=== PATIENT | male | born 1945 | race African-American/Black ===

== ENCOUNTER 2024-04-12 15:39 | Inpatient (IN) | payer BC, OTHER ==
[2024-04-12 16:26] LABS: VENOUS BASE EXCESS -5.3 mmol/L (-2-2); VENOUS O2 SATURATION 50.2 % (70-80); VENOUS PCO2 49.9 mmHg (38-52); VENOUS PH 7.261 (7.310-7.410)
[2024-04-12 16:45] LABS: BASO % 0.3 % (0-2.0); EOS % 3.1 % (0-4.5); HEMATOCRIT 37.3 % (35.4-49); HEMOGLOBIN 11.6 GM/dL (11.7-16.9); LYMPH % 35.5 % (8-40); MCH 27.7 pg (25.7-33.7); MCHC 30.9 g/dl (32.0-35.9); MEAN CELL VOLUME 89.5 fl (80-96); MEAN PLT VOLUME 7.6 fl (7.5-11.1); MONO % 8.6 % (3.8-10.2); NEUT % 52.5 % (42.8-82.8); PLATELET COUNT 174 10^3/uL (134-434); RBC 4.17 M/mm3 (4.00-5.60); RDW 14.8 % (11.9-15.9); WHITE BLOOD COUNT 7.6 K/mm3 (4.0-10.0)
[2024-04-12] MEDS: SODIUM CHLORIDE 0.9% 500 ML INFUS.BAG IV ONE (16:49)
[2024-04-12 16:51] LABS: INR 0.96 (0.83-1.09); PROTHROMBIN TIME (PATIENT) 10.6 SEC (9.7-13.0)
[2024-04-12 16:54] LABS: ACTIVATED PTT 25.9 SECONDS (25.2-36.5)
[2024-04-12 17:00] LABS: ARTERIAL BLD GAS O2 SATURATION 99.5 % (95-98); ARTERIAL BLOOD GAS BASE EXCESS -4.6 mmol/L (-2-2); ARTERIAL BLOOD GAS PO2 251.6 mmHg (80-100); ARTERIAL BLOOD GAS pH 7.354 (7.350-7.450)
[2024-04-12 17:00] LABS: POTASSIUM 3.4 mmol/L (3.5-5.1)
[2024-04-12 17:02] LABS: BLOOD UREA NITROGEN 22.5 mg/dL (7-18); CALCIUM 8.7 mg/dL (8.5-10.1)
[2024-04-12 17:03] LABS: ALBUMIN 3.6 g/dl (3.4-5.0)
[2024-04-12 17:06] LABS: PHOSPHOROUS 2.6 mg/dL (2.5-4.9)
[2024-04-12 17:07] LABS: BILIRUBIN,TOTAL 0.5 mg/dL (0.2-1); TOT PROT 7.8 g/dl (6.4-8.2)
[2024-04-12] MEDS ORDERED: fentaNYL CITRATE 250 MCG/5 ML VIAL ONE (17:09)
[2024-04-12] MEDS ORDERED: MIDAZOLAM IN 0.9 % SOD.CHLORID 1 MG/1 ML PLAST..BAG ONE (17:09)
[2024-04-12 17:11] LABS: N-TERMINAL BNP 615.3 pg/ml (5-450)
[2024-04-12 17:20] LABS: LACTIC ACID 2.8 mmol/L (0.4-2.0)
[2024-04-12] MEDS: FENTANYL NS IVPB 500 MCG/100 ML BAG IVPB SCH (17:57)
[2024-04-12] MEDS: MIDAZOLAM 100 MG in SODIUM CHLORIDE 100 ML IVPB SCH (17:57)
[2024-04-12 18:02] LABS: HCV DIAGNOSTIC IN-HOUSE W/RFLX NON-REACTIVE (NONREACTIVE); HIV INTERPRETATION NEGATIVE (NEGATIVE)
[2024-04-12 19:59] LABS: ARTERIAL BLD GAS O2 SATURATION 99.2 % (95-98); ARTERIAL BLOOD GAS BASE EXCESS -7.1 mmol/L (-2-2)
[2024-04-12] MEDS: NOREPINEPHRINE 0.9 % NACL 8 MG/250 ML BAG IVPB SCH (20:00)
[2024-04-12 20:03] LABS: ALLENS TEST POSITIVE; VENT MODE A/C; VENT RATE 14
[2024-04-12] MEDS ORDERED: NOREPINEPHRINE BITARTRATE 4 MG/4 ML ML IV ONE (20:39)
[2024-04-12] MEDS: MUPIROCIN 2% TOPICAL OINTMENT FOR DECOLONIZATION NS SCH (21:28)
[2024-04-12] MEDS: HEPARIN NA (PORCINE) 5,000 UNITS/ML 1ML VIAL SQ SCH (21:29)
[2024-04-12] MEDS: CHLORHEXIDINE GLUCONATE 4% CLEANSER FOR DECOLONIZATION TP SCH (21:29)
[2024-04-12] MEDS: SODIUM BICARBONATE 8.4% 50 MEQ/50 ML DISP.SYRIN IVPUSH ONE (22:12)
[2024-04-12] MEDS ORDERED: AMIODARONE IN DEXTROSE,ISO-OSM 150 MG/100 ML BAG ONE (22:35)
[2024-04-12] MEDS ORDERED: AMIODARONE IN DEXTROSE,ISO-OSM 360 MG/200 ML BAG ONE (22:41)
[2024-04-12] MEDS: AMIODARONE IN DEXTROSE,ISO-OSM 360 MG/200 ML BAG IV ONE (22:58)
[2024-04-12] MEDS ORDERED: VASopressin 20 UNITS/ML VIAL IV ONE (23:44)
[2024-04-12] MEDS ORDERED: ALBUMIN HUMAN 25% 12.5 GM/50 ML VIAL IV SCH (23:45)
[2024-04-12 23:46] LABS: ARTERIAL BLOOD GAS BASE EXCESS -1.7 mmol/L (-2-2); ARTERIAL BLOOD GAS PO2 110.6 mmHg (80-100); ARTERIAL BLOOD GAS pH 7.396 (7.350-7.450)
[2024-04-12 23:48] LABS: VENT RATE 16
[2024-04-13] MEDS: VASopressin 40 UNITS/100 ML BAG IV SCH (00:08)
[2024-04-13] MEDS: HYDROCORTISONE SOD SUCCINATE 100 MG/2 ML VIAL IVPB SCH (00:32)
[2024-04-13] MEDS: ALBUMIN HUMAN 5% 500 ML IV SOLUTION IV ONE (00:47)
[2024-04-13] MEDS: MIDAZOLAM IN 0.9 % SOD.CHLORID 100 MG/100 ML PLAST..BAG IVPB SCH (02:03)
[2024-04-13] MEDS: PIPERACILLIN/TAZOB 3.375 GM 3.375 GM in DEXTROSE 5%-WATER - 50 ML IVPB SCH (02:07)
[2024-04-13] MEDS: AMIODARONE IN DEXTROSE,ISO-OSM 360 MG/200 ML BAG IV SCH (05:27)
[2024-04-13 07:45] LABS: HEMATOCRIT 27.7 % (35.4-49); HEMOGLOBIN 9.2 GM/dL (11.7-16.9); MCH 28.9 pg (25.7-33.7); MEAN CELL VOLUME 87.3 fl (80-96); MEAN PLT VOLUME 7.7 fl (7.5-11.1); PLATELET COUNT 138 10^3/uL (134-434); RBC 3.18 M/mm3 (4.00-5.60); RDW 14.4 % (11.9-15.9); WHITE BLOOD COUNT 9.1 K/mm3 (4.0-10.0)
[2024-04-13 07:48] LABS: LACTIC ACID 2.6 mmol/L (0.4-2.0)
[2024-04-13 07:57] LABS: MAGNESIUM 1.7 mg/dL (1.8-2.4)
[2024-04-13 08:01] LABS: PHOSPHOROUS 3.2 mg/dL (2.5-4.9)
[2024-04-13 09:44] LABS: ANISOCYTOSIS 0; MACROCYTOSIS 0; OVALOCYTE 1+
[2024-04-13] MEDS: MAGNESIUM 2GM/50ML STERILE WATER IVPB IVPB ONE (09:56)
[2024-04-13] MEDS: VANCOMYCIN 1 GM PREMIX (F) 1 GM/200 ML BAG IVPB ONE (18:56)
[2024-04-13 21:47] LABS: ALBUMIN 3.1 g/dl (3.4-5.0); BLOOD UREA NITROGEN 47.4 mg/dL (7-18); CALCIUM 7.2 mg/dL (8.5-10.1)
[2024-04-13 21:50] LABS: CREATININE 4.4 mg/dL (0.55-1.3)
[2024-04-13 21:51] LABS: BILIRUBIN,TOTAL 0.8 mg/dL (0.2-1); TOT PROT 6.1 g/dl (6.4-8.2)
[2024-04-14] MEDS: PIPERACILLIN/TAZOB 2.25 GM 2.25 GM/50 ML BAG IVPB SCH (03:16)
[2024-04-14] MEDS ORDERED: AMIODARONE IN DEXTROSE,ISO-OSM 150 MG/100 ML BAG ONE (06:35)
[2024-04-14] MEDS: AMIODARONE IN DEXTROSE,ISO-OSM 150 MG/100 ML BAG IVPB ONE (06:44)
[2024-04-14] MEDS: AMIODARONE IN DEXTROSE,ISO-OSM 360 MG/200 ML BAG IV SCH ×2 (06:48→13:03)
[2024-04-14 07:13] LABS: BASO % 0.4 % (0-2.0); EOS % 0.1 % (0-4.5); HEMATOCRIT 28.8 % (35.4-49); HEMOGLOBIN 9.2 GM/dL (11.7-16.9); LYMPH % 9.6 % (8-40); MCH 28.7 pg (25.7-33.7); MCHC 32.1 g/dl (32.0-35.9); MEAN CELL VOLUME 89.4 fl (80-96); MEAN PLT VOLUME 8.7 fl (7.5-11.1); MONO % 10.9 % (3.8-10.2); PLATELET COUNT 169 10^3/uL (134-434); RBC 3.22 M/mm3 (4.00-5.60); RDW 14.7 % (11.9-15.9); WHITE BLOOD COUNT 10.9 K/mm3 (4.0-10.0)
[2024-04-14 07:55] LABS: CHLORIDE 105 mmol/L (98-107); SODIUM 136 mmol/L (136-145)
[2024-04-14 07:57] LABS: BLOOD UREA NITROGEN 61.5 mg/dL (7-18); CALCIUM 8.1 mg/dL (8.5-10.1)
[2024-04-14 07:58] LABS: ALBUMIN 3.2 g/dl (3.4-5.0); CO2 18 mmol/L (21-32); GLUCOSE,RANDOM 164 mg/dL (74-106)
[2024-04-14 07:59] LABS: ANION GAP 13 mmol/L (4-13); POTASSIUM 6.7 mmol/L (3.5-5.1)
[2024-04-14 08:00] LABS: CREATININE 5.3 mg/dL (0.55-1.3)
[2024-04-14 08:01] LABS: SGOT/AST 17 U/L (15-37); SGPT/ALT 13 U/L (13-61)
[2024-04-14 08:02] LABS: BILIRUBIN,TOTAL 0.7 mg/dL (0.2-1); TOT PROT 6.7 g/dl (6.4-8.2)
[2024-04-14 08:04] LABS: ALK PHOS 35 U/L (45-117)
[2024-04-14] MEDS: SODIUM ZIRCONIUM CYCLOSILICATE (LOKELMA) 5 GM PACKET NGT SCH ×2 (09:46→21:50)
[2024-04-14] MEDS ORDERED: FENTANYL IVPB 500 MCG/100 ML BAG IVPB SCH (10:15)
[2024-04-14] MEDS: FENTANYL NS IVPB 500 MCG/100 ML BAG IVPB SCH (10:41)
[2024-04-14] MEDS ORDERED: SODIUM CHLORIDE 250 ML IV PRN (11:01)
[2024-04-14] MEDS ORDERED: PHENYLEPHRINE NS PREMIX 50,000 MCG/500 ML BAG CVP SCH (16:45)
[2024-04-14] MEDS ORDERED: DEXTROSE 50%-WATER 25 GM/50 ML DISP.SYRIN ONE ×2 (17:02→21:47)
[2024-04-14] MEDS: SODIUM ZIRCONIUM CYCLOSILICATE (LOKELMA) 5 GM PACKET PO ONE (17:03)
[2024-04-14] MEDS: MIDAZOLAM IN 0.9 % SOD.CHLORID 100 MG/100 ML PLAST..BAG IVPB SCH (17:04)
[2024-04-14] MEDS: CALCIUM GLUC IN NACL, ISO-OSM 1 GM/50 ML BAG IVPB ONE (17:05)
[2024-04-14] MEDS: INSULIN REGULAR HUMAN 100 UNITS/ML *VIAL IVPUSH ONE ×2 (17:05→21:58)
[2024-04-14] MEDS: DEXTROSE 50%-WATER - 25 GM/50 ML VIAL IVPUSH ONE ×2 (17:05→21:59)
[2024-04-14] MEDS ORDERED: INSULIN REGULAR HUMAN 100 UNITS/ML *VIAL ONE (17:07)
[2024-04-14 21:01] LABS: CHLORIDE 105 mmol/L (98-107); SODIUM 136 mmol/L (136-145)
[2024-04-14 21:03] LABS: BLOOD UREA NITROGEN 73.2 mg/dL (7-18); CALCIUM 7.8 mg/dL (8.5-10.1); CO2 18 mmol/L (21-32); MAGNESIUM 2.5 mg/dL (1.8-2.4)
[2024-04-14 21:04] LABS: GLUCOSE,RANDOM 176 mg/dL (74-106)
[2024-04-14 21:07] LABS: ANION GAP 13 mmol/L (4-13); POTASSIUM 6.4 mmol/L (3.5-5.1)
[2024-04-14] MEDS: CALCIUM GLUCONATE IN NACL 1 GM/50 ML BAG IVPB ONE (21:48)
[2024-04-14] MEDS: AMIODARONE HCL 200 MG TABLET NGT SCH (22:14)
[2024-04-15] MEDS ORDERED: PIPERACILLIN/TAZOB 3.375 GM 3.375 GM in DEXTROSE 5%-WATER - 50 ML IVPB SCH (03:00)
[2024-04-15] MEDS: ALBUTEROL SO4 0.083% IH SOL 2.5 MG/3 ML VIAL.NEB. NEB ONE (03:45)
[2024-04-15] MEDS: ALBUMIN HUMAN 5% 250 ML IV SOLUTION IV ONE ×2 (05:30→08:59)
[2024-04-15 06:16] LABS: HEMATOCRIT 24.8 % (35.4-49); MCH 28.3 pg (25.7-33.7); MCHC 32.1 g/dl (32.0-35.9); MEAN PLT VOLUME 8.7 fl (7.5-11.1); PLATELET COUNT 163 10^3/uL (134-434); RBC 2.82 M/mm3 (4.00-5.60); WHITE BLOOD COUNT 8.2 K/mm3 (4.0-10.0)
[2024-04-15 06:37] LABS: CHLORIDE 104 mmol/L (98-107); SODIUM 134 mmol/L (136-145)
[2024-04-15 06:42] LABS: CALCIUM 8.3 mg/dL (8.5-10.1)
[2024-04-15 06:43] LABS: CO2 19 mmol/L (21-32); GLUCOSE,RANDOM 162 mg/dL (74-106); MAGNESIUM 2.4 mg/dL (1.8-2.4)
[2024-04-15 06:46] LABS: CREATININE 6.3 mg/dL (0.55-1.3); PHOSPHOROUS 6.5 mg/dL (2.5-4.9); SGOT/AST 14 U/L (15-37); SGPT/ALT 13 U/L (13-61)
[2024-04-15 06:47] LABS: BILIRUBIN,TOTAL 0.8 mg/dL (0.2-1)
[2024-04-15 06:48] LABS: ALK PHOS 32 U/L (45-117); TOT PROT 5.8 g/dl (6.4-8.2)
[2024-04-15 07:01] LABS: ALBUMIN 2.4 g/dl (3.4-5.0); ANION GAP 11 mmol/L (4-13); POTASSIUM 6.8 mmol/L (3.5-5.1)
[2024-04-15] MEDS ORDERED: DEXTROSE 50%-WATER 25 GM/50 ML DISP.SYRIN ONE (08:53)
[2024-04-15] MEDS: CALCIUM GLUC IN NACL, ISO-OSM 1 GM/50 ML BAG IVPB ONE (08:58)
[2024-04-15] MEDS: INSULIN REGULAR HUMAN 100 UNITS/ML *VIAL IVPUSH ONE (09:26)
[2024-04-15] MEDS: DEXTROSE 50%-WATER - 25 GM/50 ML VIAL IVPUSH ONE (09:27)
[2024-04-15 11:15] LABS: ANISOCYTOSIS 0; MACROCYTOSIS 0
[2024-04-15] MEDS: METOCLOPRAMIDE HCL INJECTION 10 MG/2 ML VIAL IVPUSH SCH (12:42)
[2024-04-15] MEDS ORDERED: SODIUM CHLORIDE 250 ML IV PRN (19:21)
[2024-04-16 00:34] LABS: CHLORIDE 104 mmol/L (98-107); SODIUM 135 mmol/L (136-145)
[2024-04-16 00:36] LABS: ALBUMIN 2.4 g/dl (3.4-5.0); BLOOD UREA NITROGEN 91.7 mg/dL (7-18); CALCIUM 8.3 mg/dL (8.5-10.1); CO2 17 mmol/L (21-32); GLUCOSE,RANDOM 199 mg/dL (74-106); MAGNESIUM 2.6 mg/dL (1.8-2.4)
[2024-04-16 00:39] LABS: CREATININE 7.1 mg/dL (0.55-1.3); SGOT/AST 12 U/L (15-37); SGPT/ALT 14 U/L (13-61)
[2024-04-16 00:41] LABS: BILIRUBIN,TOTAL 0.5 mg/dL (0.2-1); TOT PROT 5.9 g/dl (6.4-8.2)
[2024-04-16 00:44] LABS: ANION GAP 15 mmol/L (4-13); POTASSIUM 6.8 mmol/L (3.5-5.1)
[2024-04-16] MEDS: HEPARIN INFUSION - 25,000 UNITS/500 ML INFUS.BAG IVPB SCH (00:56)
[2024-04-16 00:59] LABS: ALK PHOS 35 U/L (45-117)
[2024-04-16] MEDS: CALCIUM GLUCONATE 10% - 1,000 MG/10 ML VIAL IVPB ONE (01:17)
[2024-04-16] MEDS: INSULIN REGULAR HUMAN 100 UNITS/ML *VIAL IVPUSH ONE ×2 (01:18→08:49)
[2024-04-16] MEDS: SODIUM ZIRCONIUM CYCLOSILICATE (LOKELMA) 5 GM PACKET NGT ONE (01:19)
[2024-04-16] MEDS: DEXTROSE 50%-WATER 25 GM/50 ML DISP.SYRIN IVPUSH ONE (01:19)
[2024-04-16] MEDS: ALBUTEROL SO4 0.083% IH SOL 2.5 MG/3 ML VIAL.NEB. NEB ONE (02:43)
[2024-04-16 07:19] LABS: INR 0.87 (0.83-1.09); PROTHROMBIN TIME (PATIENT) 9.5 SEC (9.7-13.0)
[2024-04-16 07:22] LABS: ACTIVATED PTT 34.9 SECONDS (25.2-36.5)
[2024-04-16 07:33] LABS: CHLORIDE 102 mmol/L (98-107); SODIUM 136 mmol/L (136-145)
[2024-04-16 07:34] LABS: HEMATOCRIT 21.7 % (35.4-49); MCH 28.3 pg (25.7-33.7); MEAN CELL VOLUME 88.3 fl (80-96); MEAN PLT VOLUME 8.5 fl (7.5-11.1); PLATELET COUNT 163 10^3/uL (134-434); RBC 2.46 M/mm3 (4.00-5.60); RDW 15.2 % (11.9-15.9); WHITE BLOOD COUNT 10.5 K/mm3 (4.0-10.0)
[2024-04-16 07:36] LABS: ALBUMIN 2.2 g/dl (3.4-5.0); BLOOD UREA NITROGEN 94.1 mg/dL (7-18); CO2 18 mmol/L (21-32); GLUCOSE,RANDOM 181 mg/dL (74-106)
[2024-04-16 07:39] LABS: PHOSPHOROUS 7.6 mg/dL (2.5-4.9); SGOT/AST 9 U/L (15-37); SGPT/ALT 11 U/L (13-61)
[2024-04-16 07:40] LABS: BILIRUBIN,TOTAL 0.5 mg/dL (0.2-1)
[2024-04-16 07:42] LABS: ALK PHOS 32 U/L (45-117)
[2024-04-16 07:49] LABS: TOT PROT 5.7 g/dl (6.4-8.2)
[2024-04-16 07:51] LABS: ANION GAP 17 mmol/L (4-13); CREATININE 7.2 mg/dL (0.55-1.3); POTASSIUM 6.7 mmol/L (3.5-5.1)
[2024-04-16] MEDS ORDERED: DEXTROSE 50%-WATER 25 GM/50 ML DISP.SYRIN ONE (08:37)
[2024-04-16] MEDS ORDERED: HEPARIN NA (PORCINE) 5,000 UNITS/ML 1ML VIAL IVPUSH PRN (08:45)
[2024-04-16] MEDS: HEPARIN NA (PORCINE) 5,000 UNITS/ML 1ML VIAL IVPUSH PRN (08:49)
[2024-04-16] MEDS: DEXTROSE 50%-WATER - 25 GM/50 ML VIAL IVPUSH ONE (08:49)
[2024-04-16] MEDS ORDERED: HEPARIN NA (PORCINE) 5,000 UNITS/ML 1ML VIAL SQ ONE (09:00)
[2024-04-16 09:56] LABS: ANISOCYTOSIS 1+; MACROCYTOSIS 0
[2024-04-16 12:24] LABS: HEMATOCRIT 21.7 % (35.4-49); MCH 27.8 pg (25.7-33.7); MCHC 32.1 g/dl (32.0-35.9); MEAN CELL VOLUME 86.5 fl (80-96); MEAN PLT VOLUME 8.3 fl (7.5-11.1); PLATELET COUNT 160 10^3/uL (134-434); RDW 15.8 % (11.9-15.9); WHITE BLOOD COUNT 11.3 K/mm3 (4.0-10.0)
[2024-04-16] MEDS: PANTOPRAZOLE SODIUM 40 MG VIAL IVPUSH SCH (13:07)
[2024-04-16 15:34] VITALS: BMI 22.6
[2024-04-17 06:16] LABS: MCH 27.9 pg (25.7-33.7); MCHC 31.8 g/dl (32.0-35.9); MEAN CELL VOLUME 87.7 fl (80-96); MEAN PLT VOLUME 8.2 fl (7.5-11.1); PLATELET COUNT 172 10^3/uL (134-434); RBC 2.32 M/mm3 (4.00-5.60); RDW 15.1 % (11.9-15.9); WHITE BLOOD COUNT 13.9 K/mm3 (4.0-10.0)
[2024-04-17 06:29] LABS: HEMOGLOBIN 6.5 GM/dL (11.7-16.9)
[2024-04-17 06:31] LABS: HEMATOCRIT 20.3 % (35.4-49)
[2024-04-17] MEDS ORDERED: VASopressin 20 UNITS/ML VIAL IV ONE (08:25)
[2024-04-17 08:54] LABS: BILIRUBIN,TOTAL 0.4 mg/dL (0.2-1); BLOOD UREA NITROGEN 85.2 mg/dL (7-18); CALCIUM 7.8 mg/dL (8.5-10.1); CREATININE 6.2 mg/dL (0.55-1.3); MAGNESIUM 2.6 mg/dL (1.8-2.4); POTASSIUM 5.7 mmol/L (3.5-5.1)
[2024-04-17 11:43] LABS: ANISOCYTOSIS 0; CORRECTED WBC 12.19 K/mm3; MACROCYTOSIS 0
[2024-04-17 13:16] LABS: TOT PROT 6.8 g/dl (6.4-8.2)
[2024-04-17] MEDS ORDERED: SODIUM CHLORIDE 250 ML IV PRN (13:38)
[2024-04-17] MEDS: INSULIN REGULAR HUMAN 100 UNITS/ML *VIAL IVPUSH ONE (14:32)
[2024-04-17] MEDS: DEXTROSE 50%-WATER 25 GM/50 ML DISP.SYRIN IVPUSH ONE (14:32)
[2024-04-17] MEDS: ALBUMIN HUMAN 25% 12.5 GM/50 ML VIAL IV SCH (15:00)
[2024-04-17] MEDS: MIDODRINE HCL 5 MG TABLET PO SCH (15:00)
[2024-04-17 18:16] LABS: HEMATOCRIT 27.1 % (35.4-49); HEMOGLOBIN 8.9 GM/dL (11.7-16.9); MCH 28.4 pg (25.7-33.7); MCHC 32.8 g/dl (32.0-35.9); MEAN CELL VOLUME 86.6 fl (80-96); PLATELET COUNT 175 10^3/uL (134-434); RBC 3.12 M/mm3 (4.00-5.60); RDW 15.3 % (11.9-15.9); WHITE BLOOD COUNT 15.7 K/mm3 (4.0-10.0)
[2024-04-17 18:57] LABS: ANISOCYTOSIS 2+; CORRECTED WBC 12.66 K/mm3; MACROCYTOSIS 2+; OVALOCYTE 1+
[2024-04-17 19:06] LABS: BLOOD UREA NITROGEN 44.3 mg/dL (7-18); CALCIUM 8.3 mg/dL (8.5-10.1); POTASSIUM 3.9 mmol/L (3.5-5.1)
[2024-04-17 19:12] LABS: CREATININE 3.4 mg/dL (0.55-1.3)
[2024-04-17] MEDS ORDERED: ROCURONIUM BROMIDE 50 MG/5 ML VIAL ONE (19:12)
[2024-04-17] MEDS: ROCURONIUM BROMIDE 50 MG/5 ML VIAL IVPUSH ONE (19:25)
[2024-04-17 21:25] LABS: ARTERIAL BLOOD GAS BASE EXCESS -0.9 mmol/L (-2-2); ARTERIAL BLOOD GAS PO2 161.3 mmHg (80-100); ARTERIAL BLOOD GAS pH 7.381 (7.350-7.450)
[2024-04-17 21:26] LABS: ALLENS TEST POSITIVE
[2024-04-17] MEDS: PANTOPRAZOLE SODIUM 40 MG VIAL IVPUSH SCH (21:26)
[2024-04-17 21:27] LABS: VENT MODE A/C; VENT RATE 16
[2024-04-18] MEDS: MIDODRINE HCL 5 MG TABLET PO SCH ×2 (01:29→14:52)
[2024-04-18 07:06] LABS: HEMOGLOBIN 7.9 GM/dL (11.7-16.9); MCH 28.8 pg (25.7-33.7); MCHC 32.8 g/dl (32.0-35.9); MEAN CELL VOLUME 87.8 fl (80-96); MEAN PLT VOLUME 8.1 fl (7.5-11.1); PLATELET COUNT 177 10^3/uL (134-434); RBC 2.74 M/mm3 (4.00-5.60); RDW 15.3 % (11.9-15.9)
[2024-04-18 07:21] LABS: POTASSIUM 4.2 mmol/L (3.5-5.1)
[2024-04-18 08:09] LABS: BLOOD UREA NITROGEN 62.7 mg/dL (7-18); CALCIUM 7.8 mg/dL (8.5-10.1); MAGNESIUM 2.5 mg/dL (1.8-2.4)
[2024-04-18 08:12] LABS: CREATININE 4.6 mg/dL (0.55-1.3); PHOSPHOROUS 6.8 mg/dL (2.5-4.9)
[2024-04-18 08:13] LABS: BILIRUBIN,TOTAL 0.5 mg/dL (0.2-1); TOT PROT 5.4 g/dl (6.4-8.2)
[2024-04-18] MEDS: HYDROCORTISONE SOD SUCCINATE 100 MG/2 ML VIAL IVPB SCH ×2 (11:00→16:30)
[2024-04-18 11:10] LABS: ANISOCYTOSIS 1+; CORRECTED WBC 11.76 K/mm3; MACROCYTOSIS 0; OVALOCYTE 1+
[2024-04-18 12:11] LABS: ARTERIAL BLD GAS O2 SATURATION 98.8 % (95-98); ARTERIAL BLOOD GAS BASE EXCESS -1.5 mmol/L (-2-2); ARTERIAL BLOOD GAS PO2 137.8 mmHg (80-100); ARTERIAL BLOOD GAS pH 7.433 (7.350-7.450)
[2024-04-18 12:13] LABS: VENT MODE A/C; VENT RATE 12
[2024-04-18 23:17] LABS: HEMATOCRIT 24.6 % (35.4-49); MCH 28.5 pg (25.7-33.7); MCHC 32.6 g/dl (32.0-35.9); MEAN CELL VOLUME 87.4 fl (80-96); MEAN PLT VOLUME 7.5 fl (7.5-11.1); PLATELET COUNT 206 10^3/uL (134-434); RBC 2.81 M/mm3 (4.00-5.60); RDW 15.3 % (11.9-15.9); WHITE BLOOD COUNT 10.9 K/mm3 (4.0-10.0)
[2024-04-18 23:28] LABS: INR 1.04 (0.83-1.09); PROTHROMBIN TIME (PATIENT) 11.4 SEC (9.7-13.0)
[2024-04-19] MEDS: LABETALOL HCL 20 MG/4 ML VIAL IVPUSH PRN (06:30)
[2024-04-19 07:32] LABS: POTASSIUM 3.9 mmol/L (3.5-5.1)
[2024-04-19 07:33] LABS: HEMATOCRIT 25.3 % (35.4-49); HEMOGLOBIN 8.5 GM/dL (11.7-16.9); MCHC 33.5 g/dl (32.0-35.9); MEAN CELL VOLUME 86.6 fl (80-96); MEAN PLT VOLUME 8.2 fl (7.5-11.1); PLATELET COUNT 215 10^3/uL (134-434); RBC 2.93 M/mm3 (4.00-5.60); RDW 15.7 % (11.9-15.9); WHITE BLOOD COUNT 12.5 K/mm3 (4.0-10.0)
[2024-04-19 09:06] LABS: ANISOCYTOSIS 1+; MACROCYTOSIS 1+
[2024-04-19] MEDS: HYDROCORTISONE SOD SUCCINATE 100 MG/2 ML VIAL IVPB SCH ×2 (09:14→22:21)
[2024-04-19 10:02] LABS: BLOOD UREA NITROGEN 93.3 mg/dL (7-18); MAGNESIUM 3.1 mg/dL (1.8-2.4)
[2024-04-19 10:05] LABS: BILIRUBIN,TOTAL 0.8 mg/dL (0.2-1); CREATININE 5.7 mg/dL (0.55-1.3); PHOSPHOROUS 7.2 mg/dL (2.5-4.9); TOT PROT 5.4 g/dl (6.4-8.2)
[2024-04-19] MEDS ORDERED: SODIUM CHLORIDE 250 ML IV PRN (12:42)
[2024-04-19] MEDS: METOPROLOL TARTRATE 5 MG/5 ML VIAL IVPUSH ONE (14:03)
[2024-04-19] MEDS: MIDODRINE HCL 5 MG TABLET PO SCH ×2 (14:54→15:44)
[2024-04-19] MEDS: EPOETIN ALFA-EPBX 4,000 UNIT/ML VIAL SQ ONE (15:13)
[2024-04-19] MEDS: METOPROLOL TARTRATE 5 MG/5 ML VIAL IVPUSH PRN (16:08)
[2024-04-19] MEDS ORDERED: METOPROLOL TARTRATE 5 MG/5 ML VIAL IVPUSH PRN (16:17)
[2024-04-19] MEDS ORDERED: NOREPINEPHRINE BITARTRATE 4 MG/4 ML ML IV ONE (16:57)
[2024-04-19] MEDS: MIDAZOLAM IN 0.9 % SOD.CHLORID 100 MG/100 ML PLAST..BAG IVPB SCH (17:09)
[2024-04-19 19:29] LABS: ARTERIAL BLD GAS O2 SATURATION 97.3 % (95-98); ARTERIAL BLOOD GAS BASE EXCESS 0.7 mmol/L (-2-2); ARTERIAL BLOOD GAS pH 7.378 (7.350-7.450)
[2024-04-19 19:30] LABS: VENT MODE A/C; VENT RATE 12
[2024-04-19] MEDS: ALBUMIN HUMAN 25% 12.5 GM/50 ML VIAL IV ONE (22:18)
[2024-04-19] MEDS: MIDODRINE HCL 5 MG TABLET NGT ONE (22:22)
[2024-04-20 07:38] LABS: HEMATOCRIT 23.6 % (35.4-49); HEMOGLOBIN 7.8 GM/dL (11.7-16.9); MCHC 32.9 g/dl (32.0-35.9); MEAN PLT VOLUME 8.3 fl (7.5-11.1); PLATELET COUNT 255 10^3/uL (134-434); RBC 2.69 M/mm3 (4.00-5.60); RDW 15.9 % (11.9-15.9); WHITE BLOOD COUNT 15.3 K/mm3 (4.0-10.0)
[2024-04-20 09:15] LABS: POTASSIUM 3.7 mmol/L (3.5-5.1)
[2024-04-20 09:17] LABS: ALBUMIN 2.2 g/dl (3.4-5.0); BLOOD UREA NITROGEN 78.7 mg/dL (7-18); MAGNESIUM 2.5 mg/dL (1.8-2.4)
[2024-04-20 09:19] LABS: CREATININE 4.9 mg/dL (0.55-1.3); PHOSPHOROUS 6.6 mg/dL (2.5-4.9)
[2024-04-20 09:22] LABS: BILIRUBIN,TOTAL 0.7 mg/dL (0.2-1); TOT PROT 5.2 g/dl (6.4-8.2)
[2024-04-20] MEDS: MIDODRINE HCL 5 MG TABLET PO SCH (10:55)
[2024-04-20] MEDS ORDERED: SODIUM CHLORIDE 250 ML IV PRN (16:30)
[2024-04-20 21:54] LABS: BILIRUBIN,TOTAL 0.6 mg/dL (0.2-1); BLOOD UREA NITROGEN 100.4 mg/dL (7-18); CALCIUM 8.1 mg/dL (8.5-10.1); CREATININE 5.5 mg/dL (0.55-1.3); POTASSIUM 3.4 mmol/L (3.5-5.1); TOT PROT 5.2 g/dl (6.4-8.2)
[2024-04-21] MEDS: DEXMEDETOMIDINE PREMIX 400 MCG/100 ML BAG IVPB SCH (00:54)
[2024-04-21] MEDS: NOREPINEPHRINE BITARTRATE/D5W 8 MG/250 ML BAG IVPB SCH (03:00)
[2024-04-21 06:13] LABS: HEMATOCRIT 22.8 % (35.4-49); HEMOGLOBIN 7.4 GM/dL (11.7-16.9); MCH 28.8 pg (25.7-33.7); MCHC 32.7 g/dl (32.0-35.9); MEAN CELL VOLUME 88.2 fl (80-96); MEAN PLT VOLUME 8.1 fl (7.5-11.1); PLATELET COUNT 307 10^3/uL (134-434); RBC 2.58 M/mm3 (4.00-5.60); RDW 15.4 % (11.9-15.9); WHITE BLOOD COUNT 16.8 K/mm3 (4.0-10.0)
[2024-04-21 06:50] LABS: CHLORIDE 99 mmol/L (98-107); POTASSIUM 3.5 mmol/L (3.5-5.1); SODIUM 140 mmol/L (136-145)
[2024-04-21 07:21] LABS: ANION GAP 17 mmol/L (4-13); BLOOD UREA NITROGEN 112.4 mg/dL (7-18); CALCIUM 8.2 mg/dL (8.5-10.1); CO2 24 mmol/L (21-32); CREATININE 5.8 mg/dL (0.55-1.3); GLUCOSE,RANDOM 182 mg/dL (74-106); MAGNESIUM 2.9 mg/dL (1.8-2.4); PHOSPHOROUS 8.2 mg/dL (2.5-4.9); SGPT/ALT 22 U/L (13-61)
[2024-04-21 07:41] LABS: ALK PHOS 70 U/L (45-117); BILIRUBIN,TOTAL 0.6 mg/dL (0.2-1); SGOT/AST 26 U/L (15-37); TOT PROT 5.2 g/dl (6.4-8.2)
[2024-04-21 09:58] LABS: ANISOCYTOSIS 1+
[2024-04-21] MEDS: MIDODRINE HCL 5 MG TABLET PO SCH (13:15)
[2024-04-21] MEDS: EPOETIN ALFA-EPBX 10,000 UNIT/ML VIAL IVPUSH ONE (19:36)
[2024-04-21] MEDS: ALBUMIN HUMAN 25% 12.5 GM/50 ML VIAL IV SCH (20:18)
[2024-04-22 06:59] LABS: HEMATOCRIT 18.8 % (35.4-49); MCH 29.1 pg (25.7-33.7); MCHC 33.1 g/dl (32.0-35.9); MEAN CELL VOLUME 87.7 fl (80-96); MEAN PLT VOLUME 8.1 fl (7.5-11.1); PLATELET COUNT 308 10^3/uL (134-434); RBC 2.14 M/mm3 (4.00-5.60); RDW 15.8 % (11.9-15.9); WHITE BLOOD COUNT 12.2 K/mm3 (4.0-10.0)
[2024-04-22 07:23] LABS: HEMOGLOBIN 6.2 GM/dL (11.7-16.9)
[2024-04-22 07:56] LABS: ALBUMIN 3.1 g/dl (3.4-5.0); BILIRUBIN,TOTAL 0.9 mg/dL (0.2-1); BLOOD UREA NITROGEN 69.1 mg/dL (7-18); CALCIUM 8.7 mg/dL (8.5-10.1); MAGNESIUM 2.5 mg/dL (1.8-2.4); PHOSPHOROUS 4.8 mg/dL (2.5-4.9); POTASSIUM 3.2 mmol/L (3.5-5.1); TOT PROT 5.6 g/dl (6.4-8.2)
[2024-04-22] MEDS: ACETAMINOPHEN 1000 MG/100 ML BAG IVPB ONE (11:58)
[2024-04-22] MEDS: LABETALOL HCL 20 MG/4 ML VIAL IVPUSH PRN (20:10)
[2024-04-22] MEDS: HYDROmorphone HCL CARPU-JECT 2 MG/1 ML DISP.SYRIN IVPUSH PRN (20:48)
[2024-04-23] MEDS: AMIODARONE IN DEXTROSE,ISO-OSM 150 MG/100 ML BAG IVPB ONE (06:03)
[2024-04-23] MEDS: AMIODARONE IN DEXTROSE,ISO-OSM 360 MG/200 ML BAG IV SCH ×2 (06:21→12:31)
[2024-04-23 07:14] LABS: HEMATOCRIT 23.3 % (35.4-49); HEMOGLOBIN 7.7 GM/dL (11.7-16.9); MCH 29.4 pg (25.7-33.7); MCHC 33.2 g/dl (32.0-35.9); MEAN CELL VOLUME 88.6 fl (80-96); MEAN PLT VOLUME 7.6 fl (7.5-11.1); PLATELET COUNT 382 10^3/uL (134-434); RBC 2.64 M/mm3 (4.00-5.60); RDW 15.5 % (11.9-15.9); WHITE BLOOD COUNT 12.4 K/mm3 (4.0-10.0)
[2024-04-23 07:44] LABS: POTASSIUM 3.6 mmol/L (3.5-5.1)
[2024-04-23 08:05] LABS: CALCIUM 8.5 mg/dL (8.5-10.1)
[2024-04-23 08:06] LABS: ALBUMIN 2.5 g/dl (3.4-5.0); MAGNESIUM 2.6 mg/dL (1.8-2.4)
[2024-04-23 08:08] LABS: CREATININE 5.4 mg/dL (0.55-1.3); PHOSPHOROUS 7.1 mg/dL (2.5-4.9)
[2024-04-23 08:09] LABS: BILIRUBIN,TOTAL 0.8 mg/dL (0.2-1); TOT PROT 5.5 g/dl (6.4-8.2)
[2024-04-23 08:11] LABS: BLOOD UREA NITROGEN 98.2 mg/dL (7-18)
[2024-04-24 06:41] LABS: BASO % 0.1 % (0-2.0); EOS % 0.5 % (0-4.5); HEMATOCRIT 23.8 % (35.4-49); HEMOGLOBIN 7.8 GM/dL (11.7-16.9); LYMPH % 6.2 % (8-40); MCH 29.4 pg (25.7-33.7); MCHC 32.7 g/dl (32.0-35.9); MEAN PLT VOLUME 7.3 fl (7.5-11.1); MONO % 8.6 % (3.8-10.2); NEUT % 84.6 % (42.8-82.8); PLATELET COUNT 384 10^3/uL (134-434); RBC 2.65 M/mm3 (4.00-5.60); RDW 15.7 % (11.9-15.9)
[2024-04-24 07:11] LABS: CHLORIDE 100 mmol/L (98-107); POTASSIUM 3.4 mmol/L (3.5-5.1); SODIUM 139 mmol/L (136-145)
[2024-04-24 07:14] LABS: ALBUMIN 2.2 g/dl (3.4-5.0); ANION GAP 16 mmol/L (4-13); CALCIUM 8.2 mg/dL (8.5-10.1); CO2 24 mmol/L (21-32)
[2024-04-24 07:15] LABS: GLUCOSE,RANDOM 166 mg/dL (74-106); MAGNESIUM 2.5 mg/dL (1.8-2.4)
[2024-04-24 07:17] LABS: SGPT/ALT 21 U/L (13-61)
[2024-04-24 07:18] LABS: CREATININE 6.2 mg/dL (0.55-1.3); SGOT/AST 16 U/L (15-37)
[2024-04-24 07:19] LABS: BILIRUBIN,TOTAL 0.5 mg/dL (0.2-1); TOT PROT 5.4 g/dl (6.4-8.2)
[2024-04-24 07:20] LABS: ALK PHOS 64 U/L (45-117)
[2024-04-24 07:22] LABS: BLOOD UREA NITROGEN 115.6 mg/dL (7-18)
[2024-04-24] MEDS: AMINO ACIDS/PROTEIN HYDROLYS 30 ML LIQUID.PKT GT SCH (09:32)
[2024-04-24] MEDS: VITAMIN B COMP W-C 1 EA TABLET (NEPHRO-VITE) GT SCH (09:32)
[2024-04-24] MEDS: KCL 20 MEQ PREMIX BAG 20 MEQ/100 ML INFUS.BAG IVPB ONE (09:33)
[2024-04-24] MEDS: POTASSIUM CHLORIDE ORAL LIQUID 20 MEQ/15 ML PO ONE (09:34)
[2024-04-24] MEDS: EPOETIN ALFA-EPBX 10,000 UNIT/ML VIAL IVPUSH ONE (14:00)
[2024-04-24] MEDS ORDERED: SODIUM CHLORIDE 250 ML IV PRN (15:00)
[2024-04-24] MEDS: ACETAMINOPHEN 1000 MG/100 ML BAG IVPB PRN (18:35)
[2024-04-24] MEDS: FENTANYL NS IVPB 500 MCG/100 ML BAG IVPB SCH (18:35)
[2024-04-25 07:11] LABS: CHLORIDE 101 mmol/L (98-107); POTASSIUM 4.1 mmol/L (3.5-5.1); SODIUM 140 mmol/L (136-145)
[2024-04-25 07:19] LABS: ALBUMIN 2.1 g/dl (3.4-5.0); ANION GAP 15 mmol/L (4-13); CO2 23 mmol/L (21-32); MAGNESIUM 2.6 mg/dL (1.8-2.4)
[2024-04-25 07:20] LABS: GLUCOSE,RANDOM 128 mg/dL (74-106)
[2024-04-25 07:22] LABS: SGOT/AST 17 U/L (15-37); SGPT/ALT 20 U/L (13-61)
[2024-04-25 07:23] LABS: CREATININE 5.6 mg/dL (0.55-1.3); PHOSPHOROUS 8.4 mg/dL (2.5-4.9)
[2024-04-25 07:24] LABS: BILIRUBIN,TOTAL 0.4 mg/dL (0.2-1); TOT PROT 5.5 g/dl (6.4-8.2)
[2024-04-25 07:25] LABS: ALK PHOS 67 U/L (45-117)
[2024-04-25 07:26] LABS: BASOPHILS # 0.02 x10^3/uL (0.01-0.08); EOSINOPHIL % 0.4 % (0.8-7.0); EOSINOPHILS # 0.04 x10^3/uL (0.04-0.54); HEMATOCRIT 22.9 % (40.1-51.0); HEMOGLOBIN 7.3 g/dL (13.7-17.5); MCHC 31.9 g/dl (32.3-36.5); MEAN CELL VOLUME 90.9 fl (79.0-92.2); MEAN PLT VOLUME 9.6 fl (9.4-12.4); MONOCYTE # 0.82 x10^3/uL (0.30-0.82); MONOCYTE % 8.3 % (5.3-12.2); PLATELET COUNT # 373 x10^3/uL (163-337)
[2024-04-25 07:28] LABS: BLOOD UREA NITROGEN 108.2 mg/dL (7-18)
[2024-04-25] MEDS: MIDODRINE HCL 5 MG TABLET PO SCH (15:21)
[2024-04-25] MEDS ORDERED: SODIUM CHLORIDE 250 ML IV PRN ×2 (18:32→18:34)
[2024-04-26 06:47] LABS: BASOPHILS # 0.02 x10^3/uL (0.01-0.08); EOSINOPHIL % 0.2 % (0.8-7.0); EOSINOPHILS # 0.02 x10^3/uL (0.04-0.54); HEMATOCRIT 24.3 % (40.1-51.0); HEMOGLOBIN 7.7 g/dL (13.7-17.5); MCHC 31.7 g/dl (32.3-36.5); MEAN PLT VOLUME 9.5 fl (9.4-12.4); MONOCYTE % 6.5 % (5.3-12.2); PLATELET COUNT # 417 x10^3/uL (163-337); RDW 17.2 % (12.6-16.6)
[2024-04-26 07:11] LABS: CHLORIDE 100 mmol/L (98-107); POTASSIUM 4.3 mmol/L (3.5-5.1); SODIUM 140 mmol/L (136-145)
[2024-04-26 07:14] LABS: CALCIUM 8.3 mg/dL (8.5-10.1)
[2024-04-26 07:15] LABS: ANION GAP 19 mmol/L (4-13); CO2 21 mmol/L (21-32); GLUCOSE,RANDOM 162 mg/dL (74-106); MAGNESIUM 2.8 mg/dL (1.8-2.4)
[2024-04-26 07:16] LABS: BLOOD UREA NITROGEN 124.7 mg/dL (7-18)
[2024-04-26 07:18] LABS: CREATININE 6.4 mg/dL (0.55-1.3)
[2024-04-26 07:43] LABS: PHOSPHOROUS 9.2 mg/dL (2.5-4.9)
[2024-04-26] MEDS: EPOETIN ALFA-EPBX 10,000 UNIT/ML VIAL IVPUSH ONE (09:11)
[2024-04-26] MEDS: ALBUMIN HUMAN 25% 12.5 GM/50 ML VIAL IV SCH (10:01)
[2024-04-27 07:17] LABS: HEMATOCRIT 22.2 % (40.1-51.0); MCHC 31.5 g/dl (32.3-36.5); MEAN CELL VOLUME 92.9 fl (79.0-92.2); MEAN PLT VOLUME 9.4 fl (9.4-12.4); PLATELET COUNT # 387 x10^3/uL (163-337); RDW 17.2 % (12.6-16.6)
[2024-04-27 07:32] LABS: CHLORIDE 101 mmol/L (98-107); POTASSIUM 3.9 mmol/L (3.5-5.1); SODIUM 140 mmol/L (136-145)
[2024-04-27 07:46] LABS: ALBUMIN 2.2 g/dl (3.4-5.0)
[2024-04-27 07:48] LABS: ANION GAP 16 mmol/L (4-13); CO2 23 mmol/L (21-32); GLUCOSE,RANDOM 153 mg/dL (74-106); SGOT/AST 23 U/L (15-37); SGPT/ALT 26 U/L (13-61)
[2024-04-27 07:49] LABS: MAGNESIUM 2.6 mg/dL (1.8-2.4)
[2024-04-27 07:50] LABS: BILIRUBIN,TOTAL 0.4 mg/dL (0.2-1); TOT PROT 5.4 g/dl (6.4-8.2)
[2024-04-27 07:51] LABS: ALK PHOS 74 U/L (45-117)
[2024-04-27 07:52] LABS: CREATININE 5.4 mg/dL (0.55-1.3); PHOSPHOROUS 8.2 mg/dL (2.5-4.9)
[2024-04-27 07:53] LABS: BLOOD UREA NITROGEN 104.3 mg/dL (7-18)
[2024-04-27] MEDS ORDERED: ROCURONIUM BROMIDE 50 MG/5 ML VIAL IVPUSH ONE (12:52)
[2024-04-28] MEDS ORDERED: ROCURONIUM BROMIDE 50 MG/5 ML VIAL IVPUSH SCH (06:00)
[2024-04-28 07:32] LABS: HEMATOCRIT 25.4 % (40.1-51.0); HEMOGLOBIN 8.1 g/dL (13.7-17.5); MCHC 31.9 g/dl (32.3-36.5); MEAN CELL VOLUME 92.7 fl (79.0-92.2); MEAN PLT VOLUME 9.2 fl (9.4-12.4); PLATELET COUNT # 393 x10^3/uL (163-337); RDW 16.2 % (12.6-16.6)
[2024-04-28 07:53] LABS: CHLORIDE 102 mmol/L (98-107); POTASSIUM 4.2 mmol/L (3.5-5.1); SODIUM 141 mmol/L (136-145)
[2024-04-28 08:20] LABS: ALBUMIN 2.2 g/dl (3.4-5.0); ANION GAP 16 mmol/L (4-13); CALCIUM 8.3 mg/dL (8.5-10.1); CO2 24 mmol/L (21-32); GLUCOSE,RANDOM 133 mg/dL (74-106)
[2024-04-28 08:21] LABS: MAGNESIUM 2.7 mg/dL (1.8-2.4)
[2024-04-28 08:24] LABS: CREATININE 6.1 mg/dL (0.55-1.3); SGOT/AST 38 U/L (15-37); SGPT/ALT 40 U/L (13-61)
[2024-04-28 08:25] LABS: TOT PROT 5.6 g/dl (6.4-8.2)
[2024-04-28 08:26] LABS: ALK PHOS 93 U/L (45-117)
[2024-04-28 08:28] LABS: BILIRUBIN,TOTAL 0.5 mg/dL (0.2-1)
[2024-04-28 08:39] LABS: BLOOD UREA NITROGEN 124.8 mg/dL (7-18)
[2024-04-28 08:52] LABS: PHOSPHOROUS 8.8 mg/dL (2.5-4.9)
[2024-04-28] MEDS ORDERED: RAPID SEQUENCE INTUBATION KIT NR ONE ×3 (11:42→11:49)
[2024-04-28] MEDS ORDERED: SODIUM CHLORIDE 250 ML IV PRN (12:13)
[2024-04-28] MEDS: EPOETIN ALFA-EPBX 10,000 UNIT/ML VIAL SQ ONE (14:26)
[2024-04-28] MEDS: ALBUMIN HUMAN 25% 12.5 GM/50 ML VIAL IV SCH (14:47)
[2024-04-29 07:47] LABS: ABSOLUTE IMMATURE GRANULOCYTES 0.18 x10^3/uL (0.0-0.031); BASOPHILS # 0.01 x10^3/uL (0.01-0.08); EOSINOPHIL % 0.6 % (0.8-7.0); EOSINOPHILS # 0.04 x10^3/uL (0.04-0.54); HEMATOCRIT 20.2 % (40.1-51.0); HEMOGLOBIN 6.3 g/dL (13.7-17.5); MCHC 31.2 g/dl (32.3-36.5); MEAN CELL VOLUME 95.3 fl (79.0-92.2); MEAN PLT VOLUME 9.1 fl (9.4-12.4); MONOCYTE # 0.51 x10^3/uL (0.30-0.82); MONOCYTE % 8.1 % (5.3-12.2); PLATELET COUNT # 281 x10^3/uL (163-337); RDW 16.9 % (12.6-16.6)
[2024-04-29 08:08] LABS: POTASSIUM 3.4 mmol/L (3.5-5.1)
[2024-04-29 08:15] LABS: CALCIUM 7.8 mg/dL (8.5-10.1)
[2024-04-29 08:16] LABS: ALBUMIN 2.6 g/dl (3.4-5.0); BLOOD UREA NITROGEN 102.5 mg/dL (7-18); MAGNESIUM 2.5 mg/dL (1.8-2.4)
[2024-04-29 08:17] LABS: PHOSPHOROUS 7.9 mg/dL (2.5-4.9)
[2024-04-29 08:19] LABS: BILIRUBIN,TOTAL 0.6 mg/dL (0.2-1); CREATININE 5.2 mg/dL (0.55-1.3); TOT PROT 5.6 g/dl (6.4-8.2)
[2024-04-29] MEDS: KCL 10 MEQ IVPB 10 MEQ/100 ML INFUS.BAG IVPB SCH (09:17)
[2024-04-30] MEDS ORDERED: VASopressin 20 UNITS/ML VIAL IV ONE (04:32)
[2024-04-30] MEDS: ATROPINE SULFATE 1 MG/10 ML DISP.SYRIN IVPUSH ONE (05:04)
[2024-04-30] MEDS: DOPAMINE 400 MG/D5W - 400,000 MCG/250 ML INFUS.BAG IVPB SCH (05:04)
[2024-04-30 05:07] LABS: ABSOLUTE IMMATURE GRANULOCYTES 0.96 x10^3/uL (0.0-0.031); BASOPHILS # 0.02 x10^3/uL (0.01-0.08); EOSINOPHIL % 0.2 % (0.8-7.0); EOSINOPHILS # 0.02 x10^3/uL (0.04-0.54); HEMATOCRIT 17.7 % (40.1-51.0); HEMOGLOBIN 5.2 g/dL (13.7-17.5); MCHC 29.4 g/dl (32.3-36.5); MEAN CELL VOLUME 101.7 fl (79.0-92.2); MEAN PLT VOLUME 9.6 fl (9.4-12.4); MONOCYTE # 0.58 x10^3/uL (0.30-0.82); PLATELET COUNT # 286 x10^3/uL (163-337); RDW 17.1 % (12.6-16.6)
[2024-04-30] MEDS: HYDROCORTISONE SOD SUCCINATE 100 MG/2 ML VIAL IVPUSH SCH (05:11)
[2024-04-30] MEDS: EPINEPHrine INTRACARD 1:10,000 1 MG/10 ML DISP.SYRIN ICARD ONE (05:12)
[2024-04-30 05:18] LABS: VENOUS BASE EXCESS -15.8 mmol/L (-2-2); VENOUS O2 SATURATION 46.2 % (70-80); VENOUS PCO2 62.4 mmHg (38-52)
[2024-04-30 05:26] LABS: CHLORIDE 103 mmol/L (98-107); POTASSIUM 5.4 mmol/L (3.5-5.1); SODIUM 142 mmol/L (136-145)
[2024-04-30 05:27] LABS: VENOUS PH 6.977 (7.310-7.410)
[2024-04-30 05:28] LABS: CALCIUM 7.7 mg/dL (8.5-10.1)
[2024-04-30 05:29] LABS: ANION GAP 21 mmol/L (4-13); CO2 18 mmol/L (21-32); GLUCOSE,RANDOM 177 mg/dL (74-106); MAGNESIUM 2.9 mg/dL (1.8-2.4)
[2024-04-30 05:32] LABS: CREATININE 6.5 mg/dL (0.55-1.3); SGOT/AST 56 U/L (15-37); SGPT/ALT 47 U/L (13-61)
[2024-04-30 05:33] LABS: BILIRUBIN,TOTAL 0.5 mg/dL (0.2-1); TOT PROT 4.6 g/dl (6.4-8.2)
[2024-04-30 05:34] LABS: ALK PHOS 70 U/L (45-117)
[2024-04-30 05:43] LABS: LACTIC ACID 9.1 mmol/L (0.4-2.0)
[2024-04-30 06:01] LABS: BLOOD UREA NITROGEN 125.2 mg/dL (7-18)
[2024-04-30 06:02] LABS: PHOSPHOROUS 11.7 mg/dL (2.5-4.9)
[2024-04-30] MEDS: SODIUM BICARBONATE 8.4% 50 MEQ/50 ML DISP.SYRIN IVPUSH ONE ×2 (06:39)
[2024-04-30] MEDS: PANTOPRAZOLE SODIUM 160 MG in SODIUM CHLORIDE 290 ML IVPB SCH ×2 (07:13→14:47)
[2024-04-30 07:23] LABS: INR 1.28 (0.83-1.09)
[2024-04-30 09:08] LABS: ARTERIAL BLD GAS O2 SATURATION 99.5 % (95-98); ARTERIAL BLOOD GAS BASE EXCESS -8.4 mmol/L (-2-2); ARTERIAL BLOOD GAS PO2 247.3 mmHg (80-100); ARTERIAL BLOOD GAS pH 7.343 (7.350-7.450)
[2024-04-30 09:20] LABS: VENT MODE A/C; VENT RATE 26
[2024-04-30 09:31] LABS: ARTERIAL BLD GAS O2 SATURATION 99.6 % (95-98); ARTERIAL BLOOD GAS BASE EXCESS -10.1 mmol/L (-2-2); ARTERIAL BLOOD GAS PO2 249.1 mmHg (80-100); ARTERIAL BLOOD GAS pH 7.363 (7.350-7.450)
[2024-04-30 09:34] LABS: HEMATOCRIT 23.3 % (40.1-51.0); HEMOGLOBIN 7.5 g/dL (13.7-17.5); MCHC 32.2 g/dl (32.3-36.5); MEAN CELL VOLUME 91.4 fl (79.0-92.2); PLATELET COUNT # 221 x10^3/uL (163-337); RDW 15.3 % (12.6-16.6)
[2024-04-30 09:49] LABS: CHLORIDE 106 mmol/L (98-107); SODIUM 143 mmol/L (136-145)
[2024-04-30 09:52] LABS: ANION GAP 20 mmol/L (4-13); CALCIUM 7.6 mg/dL (8.5-10.1); CO2 17 mmol/L (21-32); GLUCOSE,RANDOM 149 mg/dL (74-106)
[2024-04-30 09:55] LABS: CREATININE 6.6 mg/dL (0.55-1.3); SGOT/AST 175 U/L (15-37); SGPT/ALT 93 U/L (13-61)
[2024-04-30 09:56] LABS: BILIRUBIN,TOTAL 0.6 mg/dL (0.2-1)
[2024-04-30 09:57] LABS: ALK PHOS 74 U/L (45-117); TOT PROT 4.7 g/dl (6.4-8.2)
[2024-04-30] MEDS ORDERED: SODIUM CHLORIDE 250 ML IV PRN (10:14)
[2024-04-30 10:16] LABS: LACTIC ACID 5.9 mmol/L (0.4-2.0)
[2024-04-30] MEDS: CALCIUM GLUCONATE IN NACL 1 GM/50 ML BAG IVPB ONE (10:39)
[2024-04-30 11:44] LABS: ABSOLUTE IMMATURE GRANULOCYTES 1.22 x10^3/uL (0.0-0.031); BASOPHILS # 0.11 x10^3/uL (0.01-0.08); EOSINOPHIL % 0.1 % (0.8-7.0); EOSINOPHILS # 0.01 x10^3/uL (0.04-0.54); HEMOGLOBIN 10.1 g/dL (13.7-17.5); MCHC 33.7 g/dl (32.3-36.5); MEAN CELL VOLUME 89.8 fl (79.0-92.2); MEAN PLT VOLUME 9.3 fl (9.4-12.4); MONOCYTE # 0.85 x10^3/uL (0.30-0.82); MONOCYTE % 6.5 % (5.3-12.2); PLATELET COUNT # 249 x10^3/uL (163-337); RDW 13.9 % (12.6-16.6)
[2024-04-30] MEDS ORDERED: METOPROLOL TARTRATE 5 MG/5 ML VIAL ONE (11:45)
[2024-04-30 11:51] LABS: INR 1.21 (0.83-1.09); PROTHROMBIN TIME (PATIENT) 13.3 SEC (9.7-13.0)
[2024-04-30 11:54] LABS: ACTIVATED PTT 26.7 SECONDS (25.2-36.5)
[2024-04-30] MEDS: METOPROLOL TARTRATE 5 MG/5 ML VIAL IVPUSH ONE (12:30)
[2024-04-30] MEDS ORDERED: PANTOPRAZOLE SODIUM 80 MG in SODIUM CHLORIDE 100 ML IVPB SCH (12:45)
[2024-04-30] MEDS: MIDODRINE HCL 5 MG TABLET NGT SCH (14:48)
[2024-04-30 15:47] LABS: HEMATOCRIT 29.3 % (40.1-51.0); MCHC 34.1 g/dl (32.3-36.5); MEAN CELL VOLUME 88.5 fl (79.0-92.2); MEAN PLT VOLUME 9.8 fl (9.4-12.4); PLATELET COUNT # 260 x10^3/uL (163-337); RDW 14.3 % (12.6-16.6)
[2024-04-30 16:20] LABS: LACTIC ACID 3.5 mmol/L (0.4-2.0)
[2024-04-30 20:20] LABS: ARTERIAL BLD GAS O2 SATURATION 94.8 % (95-98); ARTERIAL BLOOD GAS BASE EXCESS -9.2 mmol/L (-2-2); ARTERIAL BLOOD GAS PO2 79.1 mmHg (80-100)
[2024-04-30 20:23] LABS: HEMATOCRIT 28.7 % (40.1-51.0); HEMOGLOBIN 9.7 g/dL (13.7-17.5); MCHC 33.8 g/dl (32.3-36.5); MEAN PLT VOLUME 9.3 fl (9.4-12.4); PLATELET COUNT # 245 x10^3/uL (163-337); RDW 14.8 % (12.6-16.6)
[2024-04-30] MEDS ORDERED: MIDAZOLAM HCL 2 MG/2 ML SINGLE DOSE VIAL ONE (21:12)
[2024-04-30 22:06] LABS: ARTERIAL BLD GAS O2 SATURATION 99.5 % (95-98); ARTERIAL BLOOD GAS BASE EXCESS -8.2 mmol/L (-2-2); ARTERIAL BLOOD GAS PO2 229.2 mmHg (80-100); ARTERIAL BLOOD GAS pH 7.367 (7.350-7.450)
[2024-04-30] MEDS: MIDAZOLAM HCL 2 MG/2 ML SINGLE DOSE VIAL IVPUSH ONE (23:11)
[2024-05-01] MEDS: VANCOMYCIN/WATER FOR INJ (PEG) 1,000 MG/200 ML BAG IVPB ONE (00:12)
[2024-05-01] MEDS: AMIODARONE IN DEXTROSE,ISO-OSM 150 MG/100 ML BAG IVPB ONE (00:12)
[2024-05-01] MEDS: AMIODARONE IN DEXTROSE,ISO-OSM 360 MG/200 ML BAG IV SCH ×2 (00:12→06:42)
[2024-05-01 06:41] LABS: ARTERIAL BLD GAS O2 SATURATION 94.6 % (95-98); ARTERIAL BLOOD GAS BASE EXCESS -6.4 mmol/L (-2-2); ARTERIAL BLOOD GAS PO2 70.1 mmHg (80-100)
[2024-05-01 06:54] LABS: HEMATOCRIT 24.5 % (40.1-51.0); HEMOGLOBIN 8.4 g/dL (13.7-17.5); MCHC 34.3 g/dl (32.3-36.5); MEAN CELL VOLUME 86.6 fl (79.0-92.2); MEAN PLT VOLUME 9.7 fl (9.4-12.4); PLATELET COUNT # 196 x10^3/uL (163-337)
[2024-05-01 06:55] LABS: ABSOLUTE IMMATURE GRANULOCYTES 0.68 x10^3/uL (0.0-0.031); BASOPHILS # 0.05 x10^3/uL (0.01-0.08); EOSINOPHIL % 0.3 % (0.8-7.0); EOSINOPHILS # 0.03 x10^3/uL (0.04-0.54); MONOCYTE # 0.67 x10^3/uL (0.30-0.82); MONOCYTE % 7.7 % (5.3-12.2)
[2024-05-01 06:59] LABS: CHLORIDE 106 mmol/L (98-107); POTASSIUM 4.2 mmol/L (3.5-5.1); SODIUM 144 mmol/L (136-145)
[2024-05-01 07:09] LABS: ANION GAP 21 mmol/L (4-13); BLOOD UREA NITROGEN 125.2 mg/dL (7-18); CALCIUM 8.2 mg/dL (8.5-10.1); CO2 18 mmol/L (21-32); GLUCOSE,RANDOM 144 mg/dL (74-106); MAGNESIUM 2.4 mg/dL (1.8-2.4)
[2024-05-01 07:11] LABS: SGPT/ALT 147 U/L (13-61)
[2024-05-01 07:12] LABS: BILIRUBIN,TOTAL 0.6 mg/dL (0.2-1); CREATININE 6.3 mg/dL (0.55-1.3); SGOT/AST 214 U/L (15-37)
[2024-05-01 07:14] LABS: ALK PHOS 73 U/L (45-117)
[2024-05-01] MEDS: MIDODRINE HCL 5 MG TABLET NGT SCH (09:52)
[2024-05-01] MEDS ORDERED: PANTOPRAZOLE SODIUM 40 MG VIAL IVPUSH SCH (10:00)
[2024-05-01] MEDS ORDERED: SODIUM CHLORIDE 250 ML IV PRN (13:29)
[2024-05-01 14:23] LABS: HEMATOCRIT 24.9 % (40.1-51.0); HEMOGLOBIN 8.5 g/dL (13.7-17.5); MCHC 34.1 g/dl (32.3-36.5); MEAN CELL VOLUME 87.4 fl (79.0-92.2); MEAN PLT VOLUME 9.4 fl (9.4-12.4); PLATELET COUNT # 168 x10^3/uL (163-337); RDW 15.5 % (12.6-16.6)
[2024-05-01] MEDS ORDERED: VANCOMYCIN 1,000 MG in DEXTROSE 5%-WATER - 250 ML IVPB SCH (19:45)
[2024-05-01] MEDS: VANCOMYCIN/WATER FOR INJ (PEG) 1,000 MG/200 ML BAG IVPB SCH (20:38)
[2024-05-02 00:08] VITALS: RESP 26
[2024-05-02] MEDS: AMIODARONE IN DEXTROSE,ISO-OSM 150 MG/100 ML BAG IVPB ONE (06:15)
[2024-05-02] MEDS ORDERED: AMIODARONE IN DEXTROSE,ISO-OSM 150 MG/100 ML BAG ONE (06:28)
[2024-05-02] MEDS: AMIODARONE IN DEXTROSE,ISO-OSM 360 MG/200 ML BAG IV SCH ×2 (06:30→12:30)
[2024-05-02] MEDS ORDERED: AMIODARONE IN DEXTROSE,ISO-OSM 360 MG/200 ML BAG ONE (06:31)
[2024-05-02 06:38] LABS: PHOSPHOROUS 8.7 mg/dL (2.5-4.9)
[2024-05-02] MEDS ORDERED: AMIODARONE HCL 150 MG/3 ML VIAL IVPUSH ONE (06:58)
[2024-05-02] MEDS ORDERED: AMIODARONE IN DEXTROSE,ISO-OSM 360 MG/200 ML BAG IV SCH (07:00)
[2024-05-02] MEDS ORDERED: MIDODRINE HCL 5 MG TABLET NGT SCH (09:01)
[2024-05-02] MEDS: MIDODRINE HCL 5 MG TABLET NGT SCH (09:37)
[2024-05-02 09:59] LABS: ABSOLUTE IMMATURE GRANULOCYTES 0.28 x10^3/uL (0.0-0.031); EOSINOPHIL % 2.5 % (0.8-7.0); EOSINOPHILS # 0.07 x10^3/uL (0.04-0.54); HEMATOCRIT 24.1 % (40.1-51.0); HEMOGLOBIN 8.4 g/dL (13.7-17.5); MCHC 34.9 g/dl (32.3-36.5); MEAN CELL VOLUME 88.6 fl (79.0-92.2); MEAN PLT VOLUME 9.3 fl (9.4-12.4); MONOCYTE # 0.04 x10^3/uL (0.30-0.82); MONOCYTE % 1.4 % (5.3-12.2); PLATELET COUNT # 121 x10^3/uL (163-337); RDW 15.1 % (12.6-16.6)
[2024-05-02 14:43] VITALS: PULSE 61
[2024-05-02 16:03] VITALS: BP 93/61; TEMP 93.9
[2024-05-02] MEDS: morphine SULFATE 4 MG/ML VIAL IVPUSH ONE (16:20)
[2024-05-02] MEDS: MORPHINE SULFATE/0.9% NACL/PF 100 MG/100 ML BAG IVPB SCH (16:34)
== END 2024-05-02 17:53 | disposition expired | DRG 5 ==
LOC: JER 15:39 → JERBED 16:09 → JICU 18:39
PROVIDERS: ADMIT Internal Medicine Pulmonary Disease; ATTEND Internal Medicine Pulmonary Disease
PROC: 05HM33Z Insertion of Infusion Device into Right Internal Jugular Vein, Percutaneous Approach (ICD-10-PCS; 2024-04-12)
PROC: B54CZZA Ultrasonography of Left Lower Extremity Veins, Guidance (ICD-10-PCS; 2024-04-15)
PROC: 5A1955Z Respiratory Ventilation, Greater than 96 Consecutive Hours (ICD-10-PCS; 2024-04-17)
PROC: 0BH17EZ Insertion of Endotracheal Airway into Trachea, Via Natural or Artificial Opening (ICD-10-PCS; 2024-04-17)
PROC: 06HM33Z Insertion of Infusion Device into Right Femoral Vein, Percutaneous Approach (ICD-10-PCS; 2024-04-21)
PROC: B54BZZA Ultrasonography of Right Lower Extremity Veins, Guidance (ICD-10-PCS; 2024-04-21)
PROC: 06HN33Z Insertion of Infusion Device into Left Femoral Vein, Percutaneous Approach (ICD-10-PCS; 2024-04-25)
PROC: B54CZZA Ultrasonography of Left Lower Extremity Veins, Guidance (ICD-10-PCS; 2024-04-25)
PROC: 0B110F4 Bypass Trachea to Cutaneous with Tracheostomy Device, Open Approach (ICD-10-PCS; principal; 2024-04-28)
PROC: 05HD33Z Insertion of Infusion Device into Right Cephalic Vein, Percutaneous Approach (ICD-10-PCS; 2024-04-28)
PROC: B54MZZA Ultrasonography of Right Upper Extremity Veins, Guidance (ICD-10-PCS; 2024-04-28)
PROC: 0W9B30Z Drainage of Left Pleural Cavity with Drainage Device, Percutaneous Approach (ICD-10-PCS; 2024-04-30)
PROC: 0BJ08ZZ Inspection of Tracheobronchial Tree, Via Natural or Artificial Opening Endoscopic (ICD-10-PCS; 2024-04-30)
PROC: 5A1D70Z Performance of Urinary Filtration, Intermittent, Less than 6 Hours Per Day (ICD-10-PCS; 2024-04-30)
DX: A41.89 Other specified sepsis (principal); R65.21 Severe sepsis with septic shock; R57.1 Hypovolemic shock; E43 Unspecified severe protein-calorie malnutrition; L89.152 Pressure ulcer of sacral region, stage 2; I82.621 Acute embolism and thrombosis of deep veins of right upper extremity; I47.20 Ventricular tachycardia, unspecified; J18.9 Pneumonia, unspecified organism; G93.1 Anoxic brain damage, not elsewhere classified; I48.0 Paroxysmal atrial fibrillation; E87.5 Hyperkalemia; E27.40 Unspecified adrenocortical insufficiency; J96.01 Acute respiratory failure with hypoxia; E87.20 Acidosis, unspecified; E87.70 Fluid overload, unspecified; I12.0 Hypertensive chronic kidney disease with stage 5 chronic kidney disease or end stage renal disease; N18.6 End stage renal disease; D62 Acute posthemorrhagic anemia; T85.628A Displacement of other specified internal prosthetic devices, implants and grafts, initial encounter; Z99.11 Dependence on respirator [ventilator] status; F41.9 Anxiety disorder, unspecified; Z99.2 Dependence on renal dialysis; E78.5 Hyperlipidemia, unspecified; K59.00 Constipation, unspecified; F03.90 Unspecified dementia, unspecified severity, without behavioral disturbance, psychotic disturbance, mood disturbance, and anxiety; Z68.24 Body mass index [BMI] 24.0-24.9, adult; Y84.8 Other medical procedures as the cause of abnormal reaction of the patient, or of later complication, without mention of misadventure at the time of the procedure
CPT/HCPCS: 0241U-QW; 31500; 36415; 36430; 36511; 36600; 70450-TC; 71045-TC-FY; 74174-TC; 76705-TC; 80048; 80053; 82272; 82310; 82550; 82728; 82803; 82962; 83540; 83550; 83605; 83735; 83880; 84100; 84132; 84436; 84443; 84466; 84478; 84484; 85025; 85027; 85045; 85384; 85610; 85730; 86704; 86803; 86850; 86900; 86901; 86922; 87040; 87070; 87075; 87077; 87186; 87205; 87340; 87389; 87481; 87517; 93005; 93010; 93306-TC; 93970-TC; 94002; 94640; 95816; 99291; G0480; J0131; J0282; J0878; J1644; J2597; J2997; J3490; P9017; P9037; P9038; P9047; P9058; Q5106